=== PATIENT | male | born 1960 | race Caucasian/White ===

== ENCOUNTER 2020-03-03 16:48 | Emergency (ER) | payer OTHER, SELFPAY ==
--- NOTE | 2020-03-03 17:32 | RAD REPORT ---
EXAM DESCRIPTION: RAD - Shoulder Right 2 View - 03/03/2020 5:24 pm CLINICAL HISTORY: Right shoulder pain FINDINGS: No fracture seen. Right AC joint is mildly widened with mild elevation of the distal clavicle likely indicating a ligam entous sprain.
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
[2020-03-03] MEDS ORDERED: HYDROCODONE/APAP 5/325 MG TAB ONE (18:37)
[2020-03-03 18:43] VITALS: BP 139/87; TEMP 99.1; O2SAT 99
== END 2020-03-03 18:35 | disposition home or self-care (01) ==
LOC: ER 16:48
DX: S43.51XA Sprain of right acromioclavicular joint, initial encounter (principal); V27.4XXA Motorcycle driver injured in collision with fixed or stationary object in traffic accident, initial encounter; Z88.8 Allergy status to other drugs, medicaments and biological substances
CPT/HCPCS: 99283

== ENCOUNTER 2021-08-18 18:46 | Emergency (ER) | payer BC, SELFPAY ==
--- NOTE | 2021-08-18 22:01 | RAD REPORT ---
EXAM DESCRIPTION: CT - CTHCSPWOC - 08/18/2021 9:47 pm CLINICAL HISTORY: Trauma, head and neck injury. PAIN COMPARISON: No comparisons TECHNIQUE: Axial 5 mm thick images of the head were obtained. Axial 2 mm thick images of the cervical spine were obtained with sagittal and coronal reconstruction images generated and reviewed. All CT scans are performed using dose optimization technique as appropriate and may include automated exposure control or mA/KV adjustment according to patient size. FINDINGS: CT HEAD WITHOUT CONTRAST: No acute hemorrhage, hydrocephalus or extra-axial collection is identified.No areas of brain edema or midline shift. The paranasal sinuses and mastoids are clear.The calvarium is intact. CT CERVICAL SPINE WITHOUT CONTRAST: A John type burst fracture of the C1 vertebral body is present.There is fracture involving the a nterior arch bilaterally extending into the right lateral mass and fracture of the left aspect of the posterior arch.There is mild soft tissue swelling anterior to this level in the prevertebral space. IMPRESSION: John type burst fracture of C1 vertebral body as detailed. No acute intracranial finding. The findings were discussed with Dr. Stone in the ER on 08/18/2021 at 9:55 p.m. by telephone.
[2021-08-18] MEDS ORDERED: NA CHLORIDE 0.9% 1,000 ML ONE (22:13)
--- NOTE | 2021-08-18 22:30 | EDPHYS ---
Physician Documentation [facility] Name: Jayson Grewal Age: 61 yrs Sex: Male : 1960 Arrival Date: 08/18/2021 Time: 18:49 Bed 12 Private MD: ED Physician Doc Stone HPI: 08/18 21:58 This 61 yrs old Male presents to ER via EMS with complaints of Fall Injury. pkl 21:58 Details of fall: The patient fell from a height, monkey bars about 5 feet and landed on pkl the top of head. [place] a crunch in the neck and complained of severe neck pain. Questionable LOC.. Onset: The symptoms/episode began/occurred just prior to arrival. Associated injuries: The patient sustained injury to the head, abrasion, contusion, hematoma, neck injury. Historical: - Allergies: 20:04 Benadryl; ll1 - PMHx: 20:04 None; ll1 - PSHx: 20:04 None; ll1 - Immunization history:: Client reports having NOT received the Covid vaccine. - Social history:: Smoking status: Reported history of juuling and/or vaping. ROS: 21:58 Eyes: Negative for injury, pain, redness, and discharge, ENT: Negative for injury, pkl pain, and discharge. 21:58 Neck: Positive for pain with movement. 21:58 Cardiovascular: Negative for chest pain. 21:58 Respiratory: Negative for cough, shortness of breath. 21:58 Abdomen/GI: Negative for abdominal pain, nausea, vomiting, and diarrhea. 21:58 Back: Negative for injury or acute deformity, acute changes. 21:58 : Negative for urinary symptoms. 21:58 MS/extremity: Negative for acute changes. 21:58 Skin: Negative for rash. 21:58 Neuro: Positive for loss of consciousness, Negative for altered mental status. Exam: 21:58 Eyes: Pupils equal round and reactive to light, extra-ocular motions intact. Lids and pkl lashes normal. Conjunctiva and sclera are non-icteric and not injected. Cornea within normal limits. Periorbital areas with no swelling, redness, or edema. 21:58 Head/face: Noted is abrasion(s), that are moderate, of the top of head, contusion, hematoma. 21:58 ENT: Exam is negative for acute changes. 21:58 Neck: ROM/movement: pain, that is moderate, with any movement. 21:58 Chest/axilla: Exam negative for acute changes. 21:58 Cardiovascular: Rate: normal, Rhythm: regular. 21:58 Respiratory: the patient does not display signs of respiratory distress, Respirations: normal, Breath sounds: are clear throughout. 21:58 Abdomen/GI: Exam negative for acute changes. 21:58 Back: Exam negative for acute changes. 21:58 : Exam negative for acute changes. 21:58 Musculoskeletal/extremity: Exam is negative for acute changes. 21:58 Skin: Exam negative for rash. 21:58 Neuro: Orientation: is normal, Mentation: is normal, Memory: is normal, Cranial nerves: grossly normal, Cerebellar function: is grossly normal, Motor: is normal, Sensation: is normal. Vital Signs: 20:03 BP 160 / 98; Pulse 70; Resp 18; Temp 98.3; Pulse Ox 100% ; Weight 77.11 kg; Height 5 ll1 ft. 11 in. (180.34 cm); Pain 10/10; 22:38 BP 164 / 96; Pulse 65; Resp 18; Pulse Ox 100% on R/A; oe 20:03 Body Mass Index 23.71 (77.11 kg, 180.34 cm) ll1 MDM: 21:43 Patient medically screened. pkl 22:26 Data reviewed: vital signs, nurses notes, radiologic studies, CT scan. ED course: Dr. nishi Lo accepted transfer. 08/18 21:14 Order name: CT Head C Spine; Complete Time: 22:08 kb Administered Medications: 22:35 Drug: NS 0.9% 1000 ml Route: IV; Rate: 100 ml/hr; Site: right antecubital; bb 22:35 Drug: fentaNYL (PF) 25 mcg Route: IVP; Site: right antecubital; bb 22:35 Drug: Zofran (Ondansetron) 4 mg Route: IVP; Site: right antecubital; bb Disposition Summary: 08/18/21 22:29 Transfer Ordered Transfer Location: [facility] pkl Reason: Higher level of care pkl Condition: Stable pkl Problem: new pkl Symptoms: are unchanged pkl Accepting Physician: Dr. Lo(08/18/21 23:13) bb Diagnosis - John type burst fracture of C1 vertebral body pkl Forms: - Medication Reconciliation Form pkl - SBAR form pkl Signatures: Dispatcher [employer] EDDoc Baez MD MD pkKaylah Albarado RN RN Sandy Mcclain RN RN ll1 Corrections: (The following items were deleted from the chart) 23:13 22:29 Dr. Teresita hernandez
--- NOTE | 2021-08-18 22:30 | ER ---
Nurse's Notes [facility] Name: Jayson Grewal Age: 61 yrs Sex: Male : 1960 Arrival Date: 08/18/2021 Time: 18:49 Bed 12 Private MD: Diagnosis: John type burst fracture of C1 vertebral body Presentation: 08/18 20:03 Chief complaint: Patient states: Fell [place] monkey bars [place] park just [employer]. Abrasion and ll1 hematoma noted to head, no LOC. Entire neck pain since fall. C-collared by EMS. VSS for EMS. Gait steady. No loss of bowel control. Coronavirus screen: Vaccine status: Patient reports being unvaccinated. Client denies travel out of the [place] in the last 14 days. At this time, the client does not indicate any symptoms associated with coronavirus-19. Ebola Screen: Patient denies travel to an Ebola-affected area in the 21 days before illness onset. Initial Sepsis Screen: Does the patient meet any 2 criteria? No. Patient's initial sepsis screen is negative. Does the patient have a suspected source of infection? Yes: Bone or joint infection. Risk Assessment: Do you want to hurt yourself or someone else? Patient reports no desire to harm self or others. Onset of symptoms was August 18, 2021. 20:03 Method Of Arrival: EMS ll1 20:03 Acuity: SHANON 3 ll1 Historical: - Allergies: 20:04 Benadryl; ll1 - PMHx: 20:04 None; ll1 - PSHx: 20:04 None; ll1 - Immunization history:: Client reports having NOT received the Covid vaccine. - Social history:: Smoking status: Reported history of juuling and/or vaping. Assessment: 23:02 Reassessment: report called to receiving RN at [facility] ED. bb 23:12 Reassessment: Patient is alert, oriented x 3, equal unlabored respirations, skin bb warm/dry/pink. [facility] EMS at bedside for transfer of pt to [facility], IV site intact patent with fluids infusing. Vital Signs: 20:03 BP 160 / 98; Pulse 70; Resp 18; Temp 98.3; Pulse Ox 100% ; Weight 77.11 kg; Height 5 ll1 ft. 11 in. (180.34 cm); Pain 10/10; 22:38 BP 164 / 96; Pulse 65; Resp 18; Pulse Ox 100% on R/A; oe 20:03 Body Mass Index 23.71 (77.11 kg, 180.34 cm) ll1 ED Course: 18:49 Patient arrived in ED. ds1 20:04 Triage completed. ll1 20:04 Arm band placed on. ll1 21:43 Doc Stone MD is Attending Physician. pkl 21:48 CT Head C Spine In Process Unspecified. EDMS 22:15 initiated a transfer with Yolanda Lewis from [facility]. mw2 22:25 administrative approval given by Yolanda Lewis/ patient has been accepted to [address] to the ER/ Dr. Lo accepted the patient in transfer/ report to be called to [phone]. Administered Medications: 22:35 Drug: NS 0.9% 1000 ml Route: IV; Rate: 100 ml/hr; Site: right antecubital; bb 22:35 Drug: fentaNYL (PF) 25 mcg Route: IVP; Site: right antecubital; bb 22:35 Drug: Zofran (Ondansetron) 4 mg Route: IVP; Site: right antecubital; bb Outcome: 22:29 ER care complete, transfer ordered by . pkl 23:01 Transferred by ground EMS to [facility], Transfer form completed. X-rays sent bb w/ patient. 23:01 Condition: stable 23:01 Instructed on the need for transfer. 23:13 Patient left the ED. bb Signatures: Dispatcher [employer] EDMS Doc Stone MD MD pkl Margaret Tyler ds1 Kaylah Geronimo, RN RN bb Vinny Marquis MyKena mw2 Sandy Lam, PAMELA RN ll1 Corrections: (The following items were deleted from the chart) 22:27 22:[address] Stone with the Trauma Doctor from [facility] mw2 mw2
[2021-08-18] MEDS ORDERED: FENTANYL CITR 100 MCG/2 ML ONE (22:35)
[2021-08-18] MEDS ORDERED: ONDANSETRON 4 MG/2 ML VIAL ONE (22:35)
[2021-08-18 23:20] VITALS: TEMP 98.3; O2SAT 100
[2021-08-18 23:21] VITALS: BP 164/96
== END 2021-08-18 23:13 | disposition short-term general hospital (02) ==
LOC: ER 18:46
DX: S12.01XA Stable burst fracture of first cervical vertebra, initial encounter for closed fracture (principal); W09.8XXA Fall on or from other playground equipment, initial encounter; Y92.89 Other specified places as the place of occurrence of the external cause; Z88.8 Allergy status to other drugs, medicaments and biological substances
CPT/HCPCS: 70450; 72125; 96375; 96374; 99285; J3010; J7030; J2405

== ENCOUNTER 2024-10-15 00:01 | Emergency (ER) | payer BC, OTHER, SELFPAY ==
--- OUTSIDE RECORDS SUMMARY | 2024-10-15 00:04 | XMS REPORT | Continuity of Care Document ---
Author Name Unknown Address [address] [place] [address] [facility] thconnect Address [address] [place] [address] Care Team Providers Care Video Editor Name Role Phone Unknown, Physician Primary Care Physician Rasheeda Mae MD, Fredis Oh Attending Clinician + Payers Payer Name Policy Type Policy Number Effective Date Expirati on Date Source Social History Social Habit Start Date Stop Date Quantity Comments Source Sex Assigned At 1960 00:00:00 1960 00:00:00 [facility] Smoking Status Start Date Stop Date Source Tobacco smoking consumption unknown [facility] Encounters Start Date/Time End Date/Time Encounter Type Admission Type Attending Clinicians Care Facility Care Department Encounter ID Source 2021-09-29 00:00:00 2021-09-29 00:00:[address] [facility] [id number] [id number] [facility]
[2024-10-15] MEDS ORDERED: ONDANSETRON 4 MG/2 ML VIAL ONE (00:31)
[2024-10-15] MEDS ORDERED: TDAP (DIPHTH,PERTUSS(ACELL),TET VAC) 0.5 ML VIAL IMVAC ONE (00:31)
[2024-10-15] MEDS ORDERED: MORPHINE 4 MG/ML SYR ONE (00:31)
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
[2024-10-15] MEDS ORDERED: MUPIROCIN 2% OINT 22GM TUBE TOP ONE (00:48)
[2024-10-15 01:58] VITALS: BP 165/102; TEMP 97.5; O2SAT 97
== END 2024-10-15 01:39 | disposition home or self-care (01) ==
LOC: ER 00:01
DX: T24.212A Burn of second degree of left thigh, initial encounter (principal); T23.202A Burn of second degree of left hand, unspecified site, initial encounter; T31.0 Burns involving less than 10% of body surface
CPT/HCPCS: 96372; 96374; 96375; 99285; J2405